=== PATIENT | female | born 1995 | race Caucasian/White ===

== ENCOUNTER 2020-06-25 13:38 | Emergency (ER) | payer OTHER ==
[2020-06-25 13:47] VITALS: BP 132/89; PULSE 95; TEMP 98.2; BMI 40.7
[2020-06-25] MEDS ORDERED: ACETAMINOPHEN 325 MG TABLET (FP) PO ONE (14:11)
[2020-06-25] MEDS ORDERED: ACETAMINOPHEN 325 MG TABLET (FP) ONE (14:27)
== END 2020-06-25 16:04 ==
LOC: FER 13:38
DX: S06.0X0A Concussion without loss of consciousness, initial encounter (principal)
CPT/HCPCS: 70450-TC; 84703; 99284-25